=== PATIENT | male | born 1975 | race Hispanic/Latino ===

== ENCOUNTER 2024-12-04 02:01 | Inpatient (IN) | payer OTHER ==
[2024-12-04] VITALS (11 sets, daily range): BP systolic 124–148; BP diastolic 78–89; PULSE 69–88; RESP 16–20; TEMP 98.2–99.7; O2SAT 93–98
[~2024-12-04] VITALS: Ht 170.2 cm; Wt 102.1 kg
[2024-12-04 02:34] LABS: BASOPHILS % 0.4 % (0.0-1.0); EOSINOPHILS # (AUTO) 0.1 (0.0-0.4); HEMATOCRIT 45.2 % (38.2-49.6); HEMOGLOBIN 14.9 g/dL (14.0-18.0); LYMPHOCYTES # (AUTO) 1.9 (1.0-3.2); LYMPHOCYTES % 17.1 % (18.0-39.1); MEAN CORPUSCULAR VOLUME 91.1 fL (81-99); MONOCYTES # (AUTO) 0.8 (0.2-0.8); NEUTROPHILS # (AUTO) 8.4 (2.1-6.9); NEUTROPHILS % 74.3 % (38.7-80.0); PLATELET COUNT 152 x10e3/uL (140-360); RED BLOOD COUNT 4.96 x10e6/uL (4.3-5.7); WHITE BLOOD COUNT 11.31 x10e3/uL (4.8-10.8)
[2024-12-04 02:57] LABS: ALBUMIN 4.3 g/dL (3.5-5.0); ALBUMIN/GLOBULIN RATIO 1.3 (0.8-2.0); ANION GAP 18.2 mmol/L (8-16); BILIRUBIN,TOTAL 0.5 mg/dL (0.2-1.2); CALCIUM 9.4 mg/dL (8.4-10.2); CREATININE, SERUM 1.3 mg/dL (0.72-1.25); POTASSIUM 4.2 mmol/L (3.5-5.1); TOTAL PROTEIN 7.7 g/dL (6.5-8.1)
[2024-12-04] MEDS: DICYCLOMINE HCL 20 MG/2 ML VIAL IM ONE (03:14)
[2024-12-04] MEDS: ONDANSETRON HCL INJ 2MG/ML 2ML 2 MG/ML VIAL IV STA (03:14)
[2024-12-04] MEDS: SODIUM CHLORIDE 0.9% 1000ML 1,000 ML IV ONE (03:14)
[2024-12-04] MEDS: Morphine 4mg INJECTION 4 MG/ML INJ IV ONE (03:14)
[2024-12-04] MEDS: KETOROLAC TROMETHAMINE 30 MG/ML VIAL IV STA (05:13)
[2024-12-04] MEDS ORDERED: DEXTROSE 50% SYRINGE 50 ML IV PRN ×2 (05:15→11:30)
[2024-12-04] MEDS: SODIUM CHLORIDE 0.9% 1000ML 1,000 ML IV SCH (06:33)
[2024-12-04] MEDS: INSULIN REGULAR, HUMAN 100 UNIT/1 ML SQ SCH (07:21)
[2024-12-04] MEDS ORDERED: OMEPRAZOLE40 MG PO (09:25)
[2024-12-04] MEDS ORDERED: CETIRIZINE HCL10 MG PO (09:25)
[2024-12-04] MEDS ORDERED: ZETIA10 MG PO (09:26)
[2024-12-04] MEDS ORDERED: ATORVASTATIN CA20 MG PO (09:27)
[2024-12-04] MEDS ORDERED: ALBUTEROL/IPRATROPIUM 3 ML NEB NEB PRN (11:30)
[2024-12-04] MEDS ORDERED: BENZONATATE 100 MG CAP PO PRN (11:30)
[2024-12-04] MEDS ORDERED: LIDOCAINE 4% PATCH TP PRN (11:30)
[2024-12-04] MEDS ORDERED: ACETAMINOPHEN 325 MG TAB PO PRN (11:30)
[2024-12-04] MEDS ORDERED: POTASSIUM CHLORIDE 20 MEQ TAB CR PO PRN (11:30)
[2024-12-04] MEDS ORDERED: HYDRALAZINE HCL 20 MG/ML VIAL IV PRN (11:30)
[2024-12-04] MEDS: Morphine 4mg INJECTION 4 MG/ML INJ IV PRN (13:39)
[2024-12-04] MEDS ORDERED: HYDROMORPHONE 2MG/ML IV PRN (17:15)
[2024-12-04] MEDS: HYDROMORPHONE 1MG/1ML INJ IV PRN (18:37)
[2024-12-05] VITALS (11 sets, daily range): BP systolic 100–139; BP diastolic 56–87; PULSE 65–85; RESP 18–20; TEMP 97.6–100.1; O2SAT 95–100
[2024-12-05 05:56] LABS: BASOPHILS % 0.3 % (0.0-1.0); EOSINOPHILS % 0.2 % (0.0-6.0); HEMATOCRIT 41.4 % (38.2-49.6); HEMOGLOBIN 13.9 g/dL (14.0-18.0); LYMPHOCYTES # (AUTO) 1.9 (1.0-3.2); LYMPHOCYTES % 15.7 % (18.0-39.1); MEAN CORPUSCULAR HEMOGLOBIN 30.4 pg (28-32); MEAN CORPUSCULAR HGB CONC 33.6 g/dL (31-35); MEAN CORPUSCULAR VOLUME 90.6 fL (81-99); MONOCYTES # (AUTO) 1.6 (0.2-0.8); MONOCYTES % 13.6 % (4.4-11.3); NEUTROPHILS # (AUTO) 8.3 (2.1-6.9); NEUTROPHILS % 69.9 % (38.7-80.0); PLATELET COUNT 131 x10e3/uL (140-360); RED BLOOD COUNT 4.57 x10e6/uL (4.3-5.7); WHITE BLOOD COUNT 11.81 x10e3/uL (4.8-10.8)
[2024-12-05 06:34] LABS: ALBUMIN 3.5 g/dL (3.5-5.0); ANION GAP 13.7 mmol/L (8-16); BILIRUBIN,TOTAL 1.3 mg/dL (0.2-1.2); CALCIUM 8.6 mg/dL (8.4-10.2); POTASSIUM 3.7 mmol/L (3.5-5.1)
[2024-12-05] MEDS: PANTOPRAZOLE SOD 40 MG TABEC PO SCH (07:30)
[2024-12-05] MEDS ORDERED: IOPAMIDOL 370 MG/ML 100 ML INFUS..BTL INJ ONE (07:34)
[2024-12-05] MEDS ORDERED: ROCURONIUM BROMIDE 0 ML IV ONE (14:08)
[2024-12-05] MEDS ORDERED: LIDOCAINE HCL 2% LOCAL INJ 5 ML SDV VIAL INJ ONE (14:08)
[2024-12-05] MEDS ORDERED: PROPOFOL IV EMULSION 10 MG/ML 20 ML VIAL ONE (14:08)
[2024-12-05] MEDS ORDERED: MIDAZOLAM HCL 2 MG/2 ML VIAL ONE (14:08)
[2024-12-05] MEDS ORDERED: FENTANYL CITRATE/PF 100MCG/2 ML INJ ONE ×2 (14:09→14:27)
[2024-12-05] MEDS ORDERED: SUGAMMADEX SODIUM 200 MG/2 ML VIAL IV ONE (14:10)
[2024-12-05] MEDS ORDERED: ONDANSETRON HCL INJ 2MG/ML 2ML 2 MG/ML VIAL ONE (14:39)
[2024-12-05] MEDS ORDERED: DEXAMETHASONE SOD PHOS INJ 4 MG/ML SDV ONE (14:40)
[2024-12-05] MEDS ORDERED: ROCURONIUM BROMIDE 1 ML IV ONE (14:41)
[2024-12-05] MEDS ORDERED: KETOROLAC TROMETHAMINE 30 MG/ML VIAL ONE (15:27)
[2024-12-05] MEDS ORDERED: ACETAMINOPHEN 1000 MG/100 ML 100 ML IV ONE (15:27)
[2024-12-05] MEDS ORDERED: HYDROMORPHONE 1MG/1ML INJ IV PRN (15:30)
[2024-12-05] MEDS ORDERED: ONDANSETRON HCL INJ 2MG/ML 2ML 2 MG/ML VIAL IV PRN (15:30)
[2024-12-05] MEDS ORDERED: ENOXAPARIN SOD INJ 40 MG/0.4 ML SYR SC SCH (17:00)
[2024-12-05] MEDS: SODIUM CHLORIDE 0.9% 1000ML 1,000 ML IV SCH (17:15)
[2024-12-06] VITALS (9 sets, daily range): BP systolic 114–129; BP diastolic 76–85; PULSE 65–75; RESP 17–19; TEMP 97.3–98; O2SAT 92–98
[2024-12-06] MEDS: KETOROLAC TROMETHAMINE 30 MG/ML VIAL IV PRN (00:17)
[2024-12-06 06:15] LABS: HEMATOCRIT 38.5 % (38.2-49.6); HEMOGLOBIN 12.8 g/dL (14.0-18.0)
[2024-12-06 06:49] LABS: ANION GAP 15.2 mmol/L (8-16); CALCIUM 8.6 mg/dL (8.4-10.2); CREATININE, SERUM 1.06 mg/dL (0.72-1.25); POTASSIUM 4.2 mmol/L (3.5-5.1)
[2024-12-06] MEDS: ONDANSETRON HCL INJ 2MG/ML 2ML 2 MG/ML VIAL IV PRN (08:32)
[2024-12-06] MEDS: SODIUM CHLORIDE FLUSH 10 ML SYR IV PRN (08:32)
[2024-12-06] MEDS: HYDROCODONE/APAP 7.5MG-325MG 1 EA TAB PO PRN (12:33)
[2024-12-06] MEDS: MELATONIN 5 MG TABLET PO PRN (23:42)
[2024-12-06] MEDS: DIPHENHYDRAMINE HCL 25 MG CAP PO PRN (23:42)
[2024-12-07] VITALS: BP 110/66; PULSE 61; RESP 19; TEMP 97.3; O2SAT 96
[2024-12-07 04:00] VITALS: BP 119/96; PULSE 53; RESP 18; TEMP 97.9; O2SAT 99
[2024-12-07 06:01] LABS: BASOPHILS % 0.5 % (0.0-1.0); EOSINOPHILS # (AUTO) 0.1 (0.0-0.4); HEMATOCRIT 37.3 % (38.2-49.6); HEMOGLOBIN 12.1 g/dL (14.0-18.0); LYMPHOCYTES # (AUTO) 2.1 (1.0-3.2); LYMPHOCYTES % 32.2 % (18.0-39.1); MEAN CORPUSCULAR HEMOGLOBIN 30.3 pg (28-32); MEAN CORPUSCULAR HGB CONC 32.4 g/dL (31-35); MEAN CORPUSCULAR VOLUME 93.5 fL (81-99); MONOCYTES # (AUTO) 0.5 (0.2-0.8); MONOCYTES % 8.2 % (4.4-11.3); NEUTROPHILS # (AUTO) 3.8 (2.1-6.9); NEUTROPHILS % 56.8 % (38.7-80.0); PLATELET COUNT 128 x10e3/uL (140-360); RED BLOOD COUNT 3.99 x10e6/uL (4.3-5.7); WHITE BLOOD COUNT 6.59 x10e3/uL (4.8-10.8)
[2024-12-07 06:15] LABS: ANION GAP 13.9 mmol/L (8-16); CALCIUM 8.4 mg/dL (8.4-10.2); CREATININE, SERUM 1.03 mg/dL (0.72-1.25); POTASSIUM 3.9 mmol/L (3.5-5.1)
[2024-12-07 06:20] VITALS: PULSE 74; RESP 20; O2SAT 95
[2024-12-07 07:30] VITALS: BP 128/92; PULSE 72; RESP 18; TEMP 97.8; O2SAT 100
[2024-12-07] MEDS: SIMETHICONE 80 MG CHEW PO PRN (09:08)
[2024-12-07] MEDS: DOCUSATE SODIUM 100 MG CAP PO PRN (09:09)
[2024-12-07 10:00] VITALS: BP 128/92; PULSE 72; RESP 18; TEMP 97.8; O2SAT 100
[2024-12-07 13:02] VITALS: BP 112/72; PULSE 73; RESP 18; TEMP 97.9; O2SAT 97
== END 2024-12-07 17:38 | disposition home or self-care (01) | DRG 418 ==
LOC: ER 02:46 → ERHOLD 05:08 → MED/SURG2 08:10
PROVIDERS: ADMIT Internal Medicine; ATTEND Internal Medicine
PROC: 0FT44ZZ Resection of Gallbladder, Percutaneous Endoscopic Approach (ICD-10-PCS; principal; 2024-12-05 14:16)
DX: K80.00 Calculus of gallbladder with acute cholecystitis without obstruction (principal); Q43.8 Other specified congenital malformations of intestine; I10 Essential (primary) hypertension; E11.9 Type 2 diabetes mellitus without complications; E78.5 Hyperlipidemia, unspecified; E66.01 Morbid (severe) obesity due to excess calories
CPT/HCPCS: 36415; 74177; 76705; 80048; 80053; 82948; 83036; 83690; 85014; 85018; 85025; 88304; 93005; 94799; 99252; 99284; C1766; J1100; J1171; J1885; J2003; J2250; J2270; J2405; J2470; J2543; J7030; Q9967